=== PATIENT | male | born 1980 | race Caucasian/White ===

== ENCOUNTER 2016-07-01 13:16 | Emergency (ER) | payer OTHER ==
--- NOTE | ~2016-07-01 | CR282 ---
[facility] A Service of [facility] & [facility] RADIOLOGY TEXT RESULTS PATIENT: GABRIELA MAGAÑA LOCATION: SED : 78 UNIT #: [id number] AGE: [address]: Brittaney Mcneil APRN SEX: M ORDER DR: [id number] [address] [address] [id number] E MR#: [id number] Acc #: [id number] NAME: GABRIELA MAGAÑA. : 1980 SEX: M STUDY DATE/TIME: 07/01/2016 13:06 UNIT: SED ROOM: STUDY DESCRIPTION: CR Wrist Min 3 View Rt Attending Physician: Brittaney Mcneil A.P.R.N. Ordering Physician: Brittaney Mcneil A.P.R.N. Primary Care Physician: No Primary Care Physician MEDICAL IMAGING REPORT This report is preliminary unless electronic signature is present. EXAM Right wrist series, 07/01/2016. HISTORY Pain and swelling began last night. Slammed into truck door. FINDINGS AP, lateral, and oblique radiographs of the right wrist are presented. No traumatic fracture or malalignment. The joint spaces are intact. No soft tissue defect, subcutaneous air, or radiodense foreign body. Small bone island, distal radius. Dictated by... Vimal Galeana M.D. THIS IS AN ELECTRONICALLY VERIFIED REPORT Vimal Galeana M.D. at 07/08/2016 11:06 PM JOHNNA/chavez TD: 07/01/2016 14:24 JOB #: [id number] MEDICAL IMAGING REPORT Page 1 of 1
--- NOTE | ~2016-07-01 | CR142 ---
[facility] A Service of [facility] & [facility] RADIOLOGY TEXT RESULTS PATIENT: GABRIELA MAGAÑA LOCATION: SED : 78 UNIT #: [id number] AGE: [address]: Brittaney Mcneil APRN SEX: M ORDER DR: [id number] [address] [address] [id number] E MR#: [id number] Acc #: [id number] NAME: GABRIELA MAGAÑA. : 1980 SEX: M STUDY DATE/TIME: 07/01/2016 13:06 UNIT: SED ROOM: STUDY DESCRIPTION: CR Hand Min 3 Views Rt Attending Physician: Brittaney Mcneil A.P.R.N. Ordering Physician: Brittaney Mcneil A.P.R.N. Primary Care Physician: Primary Care Physician No MEDICAL IMAGING REPORT This report is preliminary unless electronic signature is present. EXAM Right hand series 07/01/2016 HISTORY Trauma. Slammed into truck door last night. Pain, swelling. FINDINGS AP, lateral and oblique radiographs of the right hand are presented. No comparisons. No fracture. On all views, there is flexion of the proximal interphalangeal joint of the 5th digit and relative extension of the 5th metacarpal phalangeal joint. I do not see associated acute appearing bony abnormality or soft tissue abnormality. This could be chronic change in alignment. In the appropriate clinical context, it could reflect acute ligamentous or tendinous injury. Please correlate with exam and mechanism of injury. No soft tissue defect, subcutaneous air or radiodense foreign body. A small bone island distal to the radius. Dictated by... Vimal Galeana M.D. THIS IS AN ELECTRONICALLY VERIFIED REPORT Vimal Galeana M.D. at 07/07/2016 10:21 PM JSK/linda TD: 07/01/2016 14:22 JOB #: [id number] MEDICAL IMAGING REPORT Page 1 of 1
[~2016-07-01 13:16] MED LIST: AMOXICILLIN500 M1 PO; DENTAL BALLS; IBUPROFEN800 MG PO; NO MEDICATIONS
== END 2016-07-01 14:04 | disposition home or self-care (01) ==
LOC: SED 13:16
DX: S63.641A Sprain of metacarpophalangeal joint of right thumb, initial encounter (principal); F17.200 Nicotine dependence, unspecified, uncomplicated; W23.0XXA Caught, crushed, jammed, or pinched between moving objects, initial encounter; Y93.89 Activity, other specified; Y92.9 Unspecified place or not applicable
CPT/HCPCS: 29125; 73110; 73130; 99283; J1885